=== PATIENT | female | born 1965 | race African-American/Black ===

== ENCOUNTER 2022-08-02 11:49 | Outpatient (CLI) | payer MEDICARE, MEDICAID | END 2022-08-02 11:50 | disposition home or self-care (01) | LOC: BICRAD 11:49 | PROVIDERS: ATTEND Family Medicine | DX: M54.41 Lumbago with sciatica, right side (principal); M47.816 Spondylosis without myelopathy or radiculopathy, lumbar region | CPT/HCPCS: 72100 ==

== ENCOUNTER 2022-08-22 15:08 | Outpatient (CLI) | payer MEDICARE, OTHER | END 2022-08-22 15:09 | disposition home or self-care (01) | LOC: BICMAMMO 15:08 | PROVIDERS: ATTEND Family Medicine | DX: Z12.31 Encounter for screening mammogram for malignant neoplasm of breast (principal) | CPT/HCPCS: 77063; 77067 ==

== ENCOUNTER 2024-02-16 22:27 | Emergency (ER) | payer OTHER | END 2024-02-16 23:41 | disposition home or self-care (01) | LOC: ERS 22:27 | DX: M79.642 Pain in left hand (principal); M25.532 Pain in left wrist; W01.0XXA Fall on same level from slipping, tripping and stumbling without subsequent striking against object, initial encounter | CPT/HCPCS: 99283 ==